=== PATIENT | male | born 1975 | race Caucasian/White ===

== ENCOUNTER 2024-04-08 11:07 | Emergency (ER) | payer OTHER, SELFPAY ==
[2024-04-08 11:19] VITALS: BP 154/105
[2024-04-08 13:06] VITALS: BMI 24.6
[2024-04-08] MEDS: ANCEF 10 IV (13:26)
[2024-04-08] MEDS: ADACEL 0.5 ML IM (13:56)
--- NOTE | 2024-04-08 14:24 | ED.GENMED ---
History of Present Illness
General
Chief Complaint: Skin Surface Trauma
Source: patient and spouse
Exam Limitations: none
Time Seen by Provider: 04/08/24 12:51
Nursing documentation reviewed up to this point in time: agreed with
History of Present Illness
History of Present Illness:
38-year-old male presenting to the emergency department today with concerns of a left second finger injury while at work. He claims that a drill bit got stuck on his glove and created a tourniquet that ended up injuring his skin and finger.
Trouble extending his DIP at this point. Denies unsure when his last tetanus shot was.
Review of Systems
Review of Systems
Allergies reviewed?: Yes
All Other Systems: ROS reviewed and negative except as documented in HPI and ROS
Phy Exam
Physical Exam
Physical Exam:
GENERAL: Alert , in no apparent distress
EYE: pupils equal and reactive
NECK: Supple, no significant adenopathy.
ENT: o/p clr, mmm.
CARDIAC: Regular rate and rhythm .
LUNGS: Clear breath sounds bilaterally, no acute respiratory distress, no wheezes/rales/rhonchi
ABDOMEN: Soft, without focal tenderness, no r/g, no cvat
NEUROLOGICAL: Alert and oriented, no focal neuro deficits
SKIN: Warm and dry, skin intact.
MUSCULOSKELETAL: Distal left index finger held in slight flexion unable to fully extend. Has some subjective decrease in sensation to the distal finger. No nailbed involvement. Unable to visualize any tendon injury. Otherwise no additional
injuries to the remainder of the finger normal tendon function otherwise., well perfused.
PSYCH: Normal and appropriate interaction.
Course
Orders/Labs/Results
Orders:
Orders
04/08/24 12:27
CR Finger(s)/thumb Min 2 Vw Lt Urgent
Comment:
Reason For Exam: laceratin and deformity
Indicate Which Finger:: Index Finger
04/08/24 13:13
CeFAZolin 2 GRAM [Ancef] 2 grams in 10 ml IV NOW
04/08/24 13:47
Tetanus/Diphth/Acelpertussis [Adacel] 0.5 ml IM .ONCE ONE
Vital Signs
Initial and Last Documented VS:
Initial Vital Signs
Temp Pulse Resp BP Pulse Ox
98 F 88 16 154/105 99
04/08/24 11:19 04/08/24 11:19 04/08/24 11:19 04/08/24 11:19 04/08/24 11:19
Last Documented Vital Signs
Temp Pulse Resp BP Pulse Ox
98 F 88 16 154/105 99
04/08/24 11:19 04/08/24 11:19 04/08/24 11:19 04/08/24 11:19 04/08/24 11:19
Procedures
Laceration Closure
Left Distal Dorsal Second Finger:
Status of Wound: clean
Size of Wound in cm: 2.5
Description of Wound Edges: sharp
Preparation: cleaned with saline
Anesthesia: 1% Lidocaine and Digital-Regional
Revision/Debridement: routine- no revision and irrigate-direct pressure
Wound exploration: explored to base- no FB
Type of Closure: single layer closure
Skin Closure Material: 4-0 nylon
Number of sutures: 4
MDM/Problems Addressed
MDM/Problems Addressed:
48-year-old male presenting to the emergency department today with concerns of left index finger injury. Patient does have a laceration just proximal to the nailbed just distal to the DIP on the dorsal aspect of his left index finger. X-ray
showing a small nondisplaced fracture. Concerning this could be an open fracture patient was given dose of Ancef will be written for Keflex for prophylaxis. He was cleaned very thoroughly with saline. He is also given updated tetanus shot. He
also was unable to extend his finger which would be consistent with a tendon injury. Case was discussed with Ortho that recommended closure and close follow-up with the hand doctor for reassessment. This was discussed with the patient who
understood. Return precautions given.
*Critical Care Note
Total Time (30-74mins, 75-104mins- exclusive of procedures): Not Applicable
ED Attending Note
-
Portions of this chart may have been created with voice recognition software.� Occasional wrong word or��sound alike� substitutions may have occurred due to the inherent limitations of voice recognition software.
Discharge Plan
Departure
Patient Disposition: Home (Routine Discharge)
Date of Disposition: 04/08/24
Time of Disposition: 14:31
Patient with high blood pressure during this ER visit?: No
Condition: Good
Covid-19: Not Applicable
Discharge Problem:
Finger laceration, Extensor tendon laceration of finger with open wound, Fracture of distal phalanx of finger
Instructions: Laceration Repair With Stitches (DC)
Prescriptions:
New
cephalexin 500 mg capsule
500 mg PO QID 3 Days Qty: 12 0RF
oxycodone 5 mg tablet
5 mg PO Q8H PRN (Reason: Pain) Qty: 3 0RF
Referrals:
Scott Forde MD [Active] - Follow up in 2-3 days
Jarad King MD [Active] - Follow up in 2-3 days
Janes Corbin DO [Family Provider] -
Activity Restrictions/Additional Instructions:
You came to the emergency department today with concerns of a finger injury. It appears that you likely have a 10 in injury and you also have a distal phalanx fracture. The laceration was with 4 stitches please follow closely with orthopedics.
Return to the emergency department any worsening, new or concerning symptoms.
Interventions
Interventions:
*Risk Screen - Suicide Last Done: 04/08/24 11:18
*General Assessment Last Done: 04/08/24 13:06
*Neglect/Abuse Screening Last Done: 04/08/24 11:18
ED-Skin Assessment Last Done: 04/08/24 13:07
Discharge Date and Time
Print Language: [place]
[2024-04-08 14:43] VITALS: BP 115/79
== END 2024-04-08 14:45 | disposition home or self-care (01) ==
LOC: EMR 11:07
PROVIDERS: EMERGENCY PHYSICIAN Emergency Medicine; FAMILY PHYSICIAN Family Medicine
DX: S62.631B Displaced fracture of distal phalanx of left index finger, initial encounter for open fracture (principal); W45.8XXA Other foreign body or object entering through skin, initial encounter; Z23 Encounter for immunization
CPT/HCPCS: 99283; 12001; 90471; 73140; 90715